=== PATIENT | female | born 1970 | race Caucasian/White ===

== ENCOUNTER 2022-12-23 13:14 | Emergency (ER) | payer SELFPAY ==
[2022-12-23] MEDS ORDERED: Lidocaine 4% 1 each Patch TOP STA (14:10)
[2022-12-23] MEDS ORDERED: Ibuprofen 400 MG Tab PO ONE (14:10)
[2022-12-23] MEDS ORDERED: Acetaminophen 325 MG Tab PO ONE (14:10)
[2022-12-23] MEDS ORDERED: Dexamethasone 10 MG/ML SDV PO ONE (15:19)
[2022-12-23] MEDS ORDERED: Dexamethasone 4 MG Tab PO ONE (15:30)
== END 2022-12-23 15:23 | disposition left against medical advice (07) ==
LOC: MW.ED 13:14
DX: S30.0XXA Contusion of lower back and pelvis, initial encounter (principal); Z88.8 Allergy status to other drugs, medicaments and biological substances; W18.30XA Fall on same level, unspecified, initial encounter
CPT/HCPCS: 51798; 72100; 72220; 99283; A9270

== ENCOUNTER 2022-12-23 16:45 | Emergency (ER) | payer SELFPAY ==
[2022-12-23] MEDS ORDERED: Dexamethasone 10 MG/ML SDV PO ONE (17:23)
[2022-12-23] MEDS ORDERED: Dexamethasone 4 MG Tab PO ONE (17:30)
== END 2022-12-23 18:05 ==
LOC: MW.ED 16:45
DX: M54.50 Low back pain, unspecified (principal); R33.9 Retention of urine, unspecified
CPT/HCPCS: 99284; J8540; 99285